=== PATIENT | female | born 1950 | race Asian ===

== ENCOUNTER 2018-01-28 09:15 | Outpatient (CLI) | payer OTHER | END 2018-01-28 20:57 | disposition home or self-care (01) | LOC: MAMMO 09:15 | DX: Z12.31 Encounter for screening mammogram for malignant neoplasm of breast (principal) ==

== ENCOUNTER 2018-11-13 08:05 | Outpatient (CLI) | payer OTHER ==
[~2018-11-13] VITALS: Ht 175.3 cm; Wt 84.4 kg
[2018-11-13 09:00] VITALS: BP 140/77; TEMP 97.5
== END 2018-11-13 10:06 | disposition home or self-care (01) ==
LOC: INF 08:05
DX: M81.0 Age-related osteoporosis without current pathological fracture (principal)
CPT/HCPCS: 36415; 82310; 96372; J0897

== ENCOUNTER 2019-02-01 11:23 | Outpatient (CLI) | payer OTHER | END 2019-02-01 20:25 | disposition home or self-care (01) | LOC: MAMMO 11:23 | DX: Z12.31 Encounter for screening mammogram for malignant neoplasm of breast (principal) ==

== ENCOUNTER 2019-06-01 18:04 | Emergency (ER) | payer OTHER ==
[~2019-06-01] VITALS: Ht 175.3 cm; Wt 85.7 kg
[2019-06-01 21:31] VITALS: BP 148/75; TEMP 98.3
== END 2019-06-01 21:31 | disposition home or self-care (01) ==
LOC: ED 18:04
DX: S63.602A Unspecified sprain of left thumb, initial encounter (principal); V79.40XA Driver of bus injured in collision with unspecified motor vehicles in traffic accident, initial encounter
CPT/HCPCS: 99283

== ENCOUNTER 2019-10-30 15:51 | Emergency (ER) | payer OTHER ==
[~2019-10-30] VITALS: Ht 175.3 cm; Wt 81.6 kg
[2019-10-30 17:35] VITALS: BP 135/78; TEMP 97.7
== END 2019-10-30 17:35 | disposition home or self-care (01) ==
LOC: ED 15:51
DX: M19.011 Primary osteoarthritis, right shoulder (principal); M75.101 Unspecified rotator cuff tear or rupture of right shoulder, not specified as traumatic
CPT/HCPCS: 96372; 99283; J1885

== ENCOUNTER 2020-02-09 08:58 | Outpatient (CLI) | payer OTHER | END 2020-02-09 21:43 | disposition home or self-care (01) | LOC: MAMMO 08:58 | DX: Z12.31 Encounter for screening mammogram for malignant neoplasm of breast (principal) ==

== ENCOUNTER 2020-04-25 09:29 | Outpatient (CLI) | payer OTHER | END 2020-04-25 23:16 | disposition home or self-care (01) | LOC: RAD 09:29 | PROVIDERS: ATTEND Orthopaedic Surgery | DX: M54.2 Cervicalgia (principal) ==

== ENCOUNTER 2021-02-12 09:29 | Outpatient (CLI) | payer OTHER | END 2021-02-12 20:03 | disposition home or self-care (01) | LOC: MAMMO 09:29 | PROVIDERS: ATTEND Internal Medicine | DX: Z12.31 Encounter for screening mammogram for malignant neoplasm of breast (principal) ==

== ENCOUNTER 2021-12-07 08:43 | Outpatient (CLI) | payer OTHER | END 2021-12-07 21:48 | disposition home or self-care (01) | LOC: RAD 08:43 | PROVIDERS: ATTEND Internal Medicine | DX: M81.0 Age-related osteoporosis without current pathological fracture (principal); N95.8 Other specified menopausal and perimenopausal disorders; M06.8A Other specified rheumatoid arthritis, other specified site ==

== ENCOUNTER 2022-02-15 09:43 | Outpatient (CLI) | payer OTHER | END 2022-02-15 20:28 | disposition home or self-care (01) | LOC: MAMMO 09:43 | PROVIDERS: ATTEND Internal Medicine | DX: Z12.31 Encounter for screening mammogram for malignant neoplasm of breast (principal) ==

== ENCOUNTER 2022-08-22 11:21 | Outpatient (CLI) | payer OTHER | END 2022-08-22 20:53 | disposition home or self-care (01) | LOC: RAD 11:21 → RESP 11:21 | PROVIDERS: ATTEND Internal Medicine | DX: Z01.818 Encounter for other preprocedural examination (principal) | CPT/HCPCS: 93005 ==

== ENCOUNTER 2023-01-27 16:57 | Outpatient (CLI) | payer OTHER | END 2023-01-27 18:58 | disposition home or self-care (01) | LOC: RAD 16:57 | PROVIDERS: ATTEND Internal Medicine | DX: M25.531 Pain in right wrist (principal); M79.641 Pain in right hand; V89.2XXA Person injured in unspecified motor-vehicle accident, traffic, initial encounter; Y92.89 Other specified places as the place of occurrence of the external cause ==